=== PATIENT | female | born 1990 | race Caucasian/White ===

== ENCOUNTER 2017-05-22 13:00 | Emergency (ER) | payer MEDICAID, OTHER ==
[~2017-05-22] VITALS: Ht 167.6 cm; Wt 86.3 kg
[2017-05-22 13:17] VITALS: BP 116/76
[2017-05-22 14:15] LABS: RAPID INFLUENZA A Negative (Negative); RAPID INFLUENZA B Negative (Negative)
== END 2017-05-22 15:00 | disposition home or self-care (01) ==
LOC: ED 14:54
DX: J20.8 Acute bronchitis due to other specified organisms (principal); J00 Acute nasopharyngitis [common cold]
CPT/HCPCS: 87400; 99284

== ENCOUNTER 2017-08-16 21:48 | Emergency (ER) | payer MEDICAID ==
[~2017-08-16] VITALS: Ht 167.6 cm; Wt 73.6 kg
[2017-08-16 21:50] VITALS: BP 114/80
[2017-08-16] MEDS ORDERED: HYDROcodone/APAP 5/325 TABLET ONE (22:04)
[2017-08-16] MEDS ORDERED: HYDROcodone/APAP 5/325 TABLET PO ONE (22:30)
== END 2017-08-16 22:30 | disposition home or self-care (01) ==
LOC: ED 22:00
DX: K04.7 Periapical abscess without sinus (principal); K02.9 Dental caries, unspecified
CPT/HCPCS: 99283

== ENCOUNTER 2018-01-10 00:03 | Emergency (ER) | payer SELFPAY ==
[~2018-01-10] VITALS: Ht 167.6 cm; Wt 71.1 kg
[2018-01-10 00:05] VITALS: BP 117/80
[2018-01-10] MEDS ORDERED: FLUORESCEIN/BENOXINATE 5 ML DROPS OP ONE (00:30)
[2018-01-10] MEDS ORDERED: ERYTHROMYCIN OPHTH 0.5%, 1GM EACHEYE ONE (01:00)
== END 2018-01-10 01:27 | disposition home or self-care (01) ==
LOC: ED 01:26
DX: H10.023 Other mucopurulent conjunctivitis, bilateral (principal)
CPT/HCPCS: 99283

== ENCOUNTER 2018-02-28 06:55 | Inpatient (IN) | payer MEDICAID, OTHER ==
[~2018-02-28] VITALS: Ht 167.6 cm; Wt 77.5 kg
[2018-02-28] MEDS ORDERED: ACETAMINOPHEN 500 MG TABLET PO ONE (07:30)
[2018-02-28] MEDS ORDERED: ACETAMINOPHEN 500 MG TABLET ONE (07:37)
[2018-02-28] MEDS ORDERED: HYDROmorphone 2 MG/ML, 1ML ONE (07:54)
[2018-02-28] MEDS ORDERED: HYDROmorphone 1 MG/ML, 1ML IV ONE (08:00)
[2018-02-28 08:23] LABS: BASOPHILS # (AUTO) 0.05 x10^3/uL (0-0.1); BASOPHILS % (AUTO) 0 % (0-1); EOSINOPHILS % (AUTO) 1 % (1-7); LYMPHOCYTES # (AUTO) 2.29 x10^3/uL (1-3.4); LYMPHOCYTES % (AUTO) 20 % (22-44); MD NO; MEAN CORPUSCULAR HEMOGLOBIN 31.7 pg (27.0-34.8); MEAN CORPUSCULAR HGB CONC 34.7 g/dL (32.4-35.8); MEAN CORPUSCULAR VOLUME 91.3 fL (80-100); MEAN PLATELET VOLUME 9.3 fL (7.4-10.4); MONOCYTES # (AUTO) 0.76 x10^3/uL (0.2-0.8); MONOCYTES % (AUTO) 7 % (2-9); NEUTROPHILS # (AUTO) 8.27 x10^3/uL (1.8-6.8); NEUTROPHILS % (AUTO) 72 % (42-75); PLATELET COUNT 301 x10^3/uL (130-400); RED BLOOD COUNT 4.11 x10^6/uL (3.82-5.3); RED CELL DISTRIBUTION WIDTH 11.7 % (9.6-15.2)
[2018-02-28 08:34] LABS: ALBUMIN 3.3 g/dL (3.4-5.0); ANION GAP 10 mmol/L (5-15); CALCIUM 8.9 mg/dL (8.5-10.1); CHLORIDE 103 mmol/L (98-107)
[2018-02-28 08:40] LABS: ALANINE AMINOTRANSFERASE 17 U/L (12-78); ALKALINE PHOSPHATASE 81 U/L (45-117); CREATININE 0.61 mg/dL (0.55-1.02); TOTAL PROTEIN 8.3 g/dL (6.4-8.2)
[2018-02-28 08:42] LABS: BILIRUBIN,TOTAL 0.4 mg/dL (0.2-1.0)
[2018-02-28] MEDS ORDERED: OMNIPAQUE 350 MG/ML, 100ML BOTTLE ONE (09:10)
[2018-02-28] MEDS ORDERED: NALOXONE 1 MG/ML, 2ML ONE (11:47)
[2018-02-28] MEDS ORDERED: ONDANSETRON ODT 4 MG PO PRN (13:30)
[2018-02-28] MEDS ORDERED: ONDANSETRON 2MG/ML, 2ML IVPush PRN (13:30)
[2018-02-28] MEDS: ENOXAPARIN 40 MG/0.4 ML SQ SCH (14:29)
[2018-02-28 14:51] VITALS: BP 113/75
[2018-02-28 19:12] VITALS: BP 109/74
[2018-02-28] MEDS: ACETAMINOPHEN 325 MG TABLET PO PRN (22:57)
[2018-03-01 00:07] VITALS: BP 102/67
[2018-03-01] MEDS ORDERED: PHARMACOKINETIC CONSULTATION MC ONE (04:00)
[2018-03-01] MEDS ORDERED: VANCOMYCIN PER PHARMACY MC PRN (04:00)
[2018-03-01] MEDS ORDERED: VANCOMYCIN 2,000 MG in SODIUM CHLORIDE 0.9% 500 ML IV ONE (04:00)
[2018-03-01] MEDS ORDERED: PHARMACOKINETIC MONITORING MC PRN (04:00)
[2018-03-01 04:35] LABS: AMPHETAMINE SCREEN, URINE Positive (Negative); BARBITURATE SCREEN, URINE Negative (Negative); BENZODIAZEPINE SCREEN, URINE Negative (Negative); CANNABINOID SCREEN, URINE Positive (Negative); COCAINE SCREEN, URINE Negative (Negative); METHADONE SCREEN, URINE Negative (Negative); OPIATE SCREEN, URINE Positive (Negative)
[2018-03-01 04:53] LABS: BASOPHILS # (AUTO) 0.05 x10^3/uL (0-0.1); BASOPHILS % (AUTO) 1 % (0-1); EOSINOPHILS # (AUTO) 0.07 x10^3/uL (0-0.4); EOSINOPHILS % (AUTO) 1 % (1-7); LYMPHOCYTES # (AUTO) 2.73 x10^3/uL (1-3.4); LYMPHOCYTES % (AUTO) 24 % (22-44); MD NO; MEAN CORPUSCULAR HEMOGLOBIN 31.4 pg (27.0-34.8); MEAN CORPUSCULAR HGB CONC 34.4 g/dL (32.4-35.8); MEAN CORPUSCULAR VOLUME 91.3 fL (80-100); MEAN PLATELET VOLUME 9.6 fL (7.4-10.4); MONOCYTES # (AUTO) 0.85 x10^3/uL (0.2-0.8); MONOCYTES % (AUTO) 7 % (2-9); NEUTROPHILS # (AUTO) 7.93 x10^3/uL (1.8-6.8); NEUTROPHILS % (AUTO) 68 % (42-75); PLATELET COUNT 331 x10^3/uL (130-400); RED BLOOD COUNT 4.25 x10^6/uL (3.82-5.3); RED CELL DISTRIBUTION WIDTH 11.9 % (9.6-15.2)
[2018-03-01 05:03] LABS: ANION GAP 10 mmol/L (5-15); CALCIUM 8.6 mg/dL (8.5-10.1); CHLORIDE 104 mmol/L (98-107); CREATININE 0.55 mg/dL (0.55-1.02)
[2018-03-01] MEDS ORDERED: LORazepam 2 MG/ML, 1ML IV PRN ×5 (07:30)
[2018-03-01] MEDS ORDERED: LORazepam 1MG TABLET PO PRN ×4 (07:30)
[2018-03-01] MEDS ORDERED: FOLIC ACID 5 MG/ML IM ONE ×2 (07:30→10:30)
[2018-03-01] MEDS: MULTIVITAMINS/MINERALS TABLET PO SCH (08:42)
[2018-03-01] MEDS: BACLOFEN 10 MG TABLET PO SCH ×2 (08:42→19:16)
[2018-03-01 08:55] VITALS: BP 105/70
[2018-03-01] MEDS: NACL IV SCH (10:01)
[2018-03-01] MEDS: FOLIC ACID IV SCH (10:01)
[2018-03-01] MEDS: MVI ADULT IV SCH (10:01)
[2018-03-01] MEDS: POTASSIUM CHLORIDE IV SCH (10:01)
[2018-03-01] MEDS: D5 IV SCH (10:01)
[2018-03-01] MEDS ORDERED: FENTANYL PF 100 MCG/2ML ONE (11:20)
[2018-03-01] MEDS: DAPTOMYCIN 400 MG in SODIUM CHLORIDE 0.9% 100 ML IVPB SCH (12:33)
[2018-03-01] MEDS: ENOXAPARIN 40 MG/0.4 ML SQ SCH (13:06)
[2018-03-01 13:25] VITALS: BP 107/75
[2018-03-01] MEDS ORDERED: VANCOMYCIN 2,000 MG in SODIUM CHLORIDE 0.9% 500 ML IV SCH (17:00)
[2018-03-01 19:30] VITALS: BP 104/74
[2018-03-01] MEDS: LORazepam 0.5MG TABLET PO PRN (21:46)
[2018-03-01] MEDS: ACETAMINOPHEN 325 MG TABLET PO PRN (22:25)
[2018-03-02 00:42] VITALS: BP 93/61
[2018-03-02 01:03] VITALS: BP 100/67
[2018-03-02 04:13] VITALS: BP 109/77
[2018-03-02] MEDS: ACETAMINOPHEN 325 MG TABLET PO PRN ×3 (04:27→23:23)
[2018-03-02] MEDS: LORazepam 0.5MG TABLET PO PRN ×4 (04:27→19:57)
[2018-03-02 04:44] LABS: CULTURE INDICATED? NO; MICROSCOPIC NOT IND
[2018-03-02 05:24] LABS: BASOPHILS # (AUTO) 0.05 x10^3/uL (0-0.1); BASOPHILS % (AUTO) 1 % (0-1); EOSINOPHILS # (AUTO) 0.14 x10^3/uL (0-0.4); EOSINOPHILS % (AUTO) 2 % (1-7); LYMPHOCYTES # (AUTO) 2.96 x10^3/uL (1-3.4); LYMPHOCYTES % (AUTO) 31 % (22-44); MD NO; MEAN CORPUSCULAR HEMOGLOBIN 31.1 pg (27.0-34.8); MEAN CORPUSCULAR HGB CONC 34.1 g/dL (32.4-35.8); MEAN CORPUSCULAR VOLUME 91.3 fL (80-100); MEAN PLATELET VOLUME 9.1 fL (7.4-10.4); MONOCYTES # (AUTO) 0.79 x10^3/uL (0.2-0.8); MONOCYTES % (AUTO) 8 % (2-9); NEUTROPHILS # (AUTO) 5.49 x10^3/uL (1.8-6.8); NEUTROPHILS % (AUTO) 58 % (42-75); PLATELET COUNT 296 x10^3/uL (130-400); RED BLOOD COUNT 3.78 x10^6/uL (3.82-5.3)
[2018-03-02 05:36] LABS: ANION GAP 9 mmol/L (5-15); CALCIUM 8.5 mg/dL (8.5-10.1); CHLORIDE 109 mmol/L (98-107)
[2018-03-02 05:37] LABS: CREATININE 0.55 mg/dL (0.55-1.02)
[2018-03-02 08:45] VITALS: BP 107/73
[2018-03-02] MEDS: NACL IV SCH (08:53)
[2018-03-02] MEDS: POTASSIUM CHLORIDE IV SCH (08:53)
[2018-03-02] MEDS: D5 IV SCH (08:53)
[2018-03-02] MEDS: MVI ADULT IV SCH (08:53)
[2018-03-02] MEDS: FOLIC ACID IV SCH (08:53)
[2018-03-02] MEDS: MULTIVITAMINS/MINERALS TABLET PO SCH (08:54)
[2018-03-02] MEDS: THIAMINE 100MG TABLET PO SCH (08:54)
[2018-03-02] MEDS: BACLOFEN 10 MG TABLET PO SCH ×2 (08:54→21:28)
[2018-03-02] MEDS: ENOXAPARIN 40 MG/0.4 ML SQ SCH (08:56)
[2018-03-02] MEDS ORDERED: THIAMINE 100 MG in DEXTROSE 5% 50 ML IVPB SCH (09:00)
[2018-03-02] MEDS: DAPTOMYCIN 400 MG in SODIUM CHLORIDE 0.9% 100 ML IVPB SCH (12:38)
[2018-03-02 13:49] LABS: SYN CELLS COUNTED 4
[2018-03-02 14:14] VITALS: BP 93/61
[2018-03-02 19:35] VITALS: BP 103/71
[2018-03-02] MEDS: TRAZODONE 50MG TABLET PO SCH (21:28)
[2018-03-03 01:54] VITALS: BP 108/73
[2018-03-03 05:24] LABS: BASOPHILS # (AUTO) 0.04 x10^3/uL (0-0.1); BASOPHILS % (AUTO) 0 % (0-1); EOSINOPHILS # (AUTO) 0.07 x10^3/uL (0-0.4); EOSINOPHILS % (AUTO) 1 % (1-7); LYMPHOCYTES # (AUTO) 3.02 x10^3/uL (1-3.4); LYMPHOCYTES % (AUTO) 30 % (22-44); MD NO; MEAN CORPUSCULAR HEMOGLOBIN 31.5 pg (27.0-34.8); MEAN CORPUSCULAR HGB CONC 34.2 g/dL (32.4-35.8); MEAN CORPUSCULAR VOLUME 92.2 fL (80-100); MEAN PLATELET VOLUME 8.7 fL (7.4-10.4); MONOCYTES # (AUTO) 0.82 x10^3/uL (0.2-0.8); MONOCYTES % (AUTO) 8 % (2-9); NEUTROPHILS # (AUTO) 6.27 x10^3/uL (1.8-6.8); NEUTROPHILS % (AUTO) 61 % (42-75); PLATELET COUNT 330 x10^3/uL (130-400); RED BLOOD COUNT 3.82 x10^6/uL (3.82-5.3); RED CELL DISTRIBUTION WIDTH 11.8 % (9.6-15.2)
[2018-03-03 05:31] LABS: ALANINE AMINOTRANSFERASE 10 U/L (12-78); ALBUMIN 2.4 g/dL (3.4-5.0); ANION GAP 7 mmol/L (5-15); CALCIUM 8.2 mg/dL (8.5-10.1); CHLORIDE 111 mmol/L (98-107); CREATININE 0.45 mg/dL (0.55-1.02)
[2018-03-03 05:35] LABS: HCT (SEDRATE) 35.2 % (34.6-47.8)
[2018-03-03 05:41] LABS: ALKALINE PHOSPHATASE 60 U/L (45-117); BILIRUBIN,TOTAL 0.2 mg/dL (0.2-1.0); TOTAL PROTEIN 6.7 g/dL (6.4-8.2)
[2018-03-03] MEDS: ACETAMINOPHEN 325 MG TABLET PO PRN ×3 (05:53→22:43)
[2018-03-03] MEDS: CEFAZOLIN PMX 2GM/50ML 50 ML IVPB SCH ×3 (05:54→21:45)
[2018-03-03] MEDS: LORazepam 0.5MG TABLET PO PRN ×2 (06:01→12:44)
[2018-03-03 07:05] VITALS: BP 102/65
[2018-03-03] MEDS: THIAMINE 100MG TABLET PO SCH (09:15)
[2018-03-03] MEDS: MULTIVITAMINS/MINERALS TABLET PO SCH (09:15)
[2018-03-03] MEDS: BACLOFEN 10 MG TABLET PO SCH ×2 (09:15→20:20)
[2018-03-03] MEDS: NACL IV SCH (09:16)
[2018-03-03] MEDS: POTASSIUM CHLORIDE IV SCH (09:16)
[2018-03-03] MEDS: FOLIC ACID IV SCH (09:16)
[2018-03-03] MEDS: D5 IV SCH (09:16)
[2018-03-03] MEDS: MVI ADULT IV SCH (09:16)
[2018-03-03 12:54] VITALS: BP 107/72
[2018-03-03] MEDS: ENOXAPARIN 40 MG/0.4 ML SQ SCH (14:16)
[2018-03-03 19:00] VITALS: BP 121/83
[2018-03-03] MEDS: TRAZODONE 50MG TABLET PO SCH (20:20)
[2018-03-04 01:42] VITALS: BP 112/77
[2018-03-04] MEDS: LORazepam 0.5MG TABLET PO PRN (04:02)
[2018-03-04] MEDS: CEFAZOLIN PMX 2GM/50ML 50 ML IVPB SCH ×2 (06:07→14:14)
[2018-03-04 07:22] VITALS: BP 124/82
[2018-03-04] MEDS: MULTIVITAMINS/MINERALS TABLET PO SCH (08:41)
[2018-03-04] MEDS: BACLOFEN 10 MG TABLET PO SCH (08:41)
[2018-03-04] MEDS: THIAMINE 100MG TABLET PO SCH (08:42)
[2018-03-04] MEDS ORDERED: METHADONE 5 MG TABLET PO PRN (11:00)
[2018-03-04 13:10] VITALS: BP 118/81
[2018-03-04] MEDS: ENOXAPARIN 40 MG/0.4 ML SQ SCH (14:13)
[2018-03-04] MEDS: ACETAMINOPHEN 325 MG TABLET PO PRN (14:13)
[2018-03-04 19:25] VITALS: BP 121/81
== END 2018-03-04 21:00 | disposition left against medical advice (07) | DRG 720 ==
LOC: ED 07:51 → EDIP 09:45 → 3NE 12:35
PROVIDERS: ADMIT Hospitalist; ATTEND Hospitalist
PROC: 0R9 Upper Joints, Drainage (ICD-10-PCS; principal; 2018-03-01)
PROC: BP2 Imaging, Non-Axial Upper Bones, Computerized Tomography (CT Scan) (ICD-10-PCS; 2018-03-01)
PROC: 02HV33Z Insertion of Infusion Device into Superior Vena Cava, Percutaneous Approach (ICD-10-PCS; 2018-03-03)
PROC: B548ZZA Ultrasonography of Superior Vena Cava, Guidance (ICD-10-PCS; 2018-03-03)
DX: A41.9 Sepsis, unspecified organism (principal); J90 Pleural effusion, not elsewhere classified; F11.20 Opioid dependence, uncomplicated; M00.011 Staphylococcal arthritis, right shoulder; F17.210 Nicotine dependence, cigarettes, uncomplicated; B95.8 Unspecified staphylococcus as the cause of diseases classified elsewhere; B95.61 Methicillin susceptible Staphylococcus aureus infection as the cause of diseases classified elsewhere; Y90.0 Blood alcohol level of less than 20 mg/100 ml; F10.10 Alcohol abuse, uncomplicated; F12.90 Cannabis use, unspecified, uncomplicated; F15.10 Other stimulant abuse, uncomplicated; F14.10 Cocaine abuse, uncomplicated; Z88.2 Allergy status to sulfonamides
CPT/HCPCS: 10160; 36415; 36569; 71260; 71552; 75989; 76937; 77001; 80048; 80053; 80307; 81003; 83605; 83735; 84100; 84145; 84703; 85025; 85651; 85810; 86140; 87040; 87077; 87147; 87186; 89050; 89060; 93005; 93306; G0378; J0690; J0878; J1170; J1650; J3010; J3370; J3480; Q9967; C1751; J2060; J7040

== ENCOUNTER 2018-06-25 18:40 | Emergency (ER) | payer MEDICAID, OTHER ==
[~2018-06-25] VITALS: Ht 167.6 cm; Wt 73.5 kg
[2018-06-25 18:51] VITALS: BP 128/84
[2018-06-25] MEDS ORDERED: FAMOTIDINE 20 MG TABLET ONE (19:57)
[2018-06-25] MEDS ORDERED: AZITHROMYCIN 250 MG TABLET ONE (19:57)
[2018-06-25] MEDS ORDERED: ONDANSETRON ODT 4 MG ONE (19:57)
[2018-06-25] MEDS ORDERED: AZITHROMYCIN 500 MG TABLET PO ONE (20:00)
[2018-06-25] MEDS ORDERED: FAMOTIDINE 20 MG TABLET PO ONE (20:00)
[2018-06-25] MEDS ORDERED: GENTAMICIN 80 MG/2 ML IM ONE (20:00)
[2018-06-25] MEDS ORDERED: ONDANSETRON ODT 4 MG PO ONE (20:00)
[2018-06-25 20:08] LABS: HCG UR SG 1.023 (1.003-1.030); MICROSCOPIC AUTO
[2018-06-25 20:09] LABS: CULTURE INDICATED? NO
[2018-06-25 20:14] LABS: BASOPHILS # (AUTO) 0.04 x10^3/uL (0-0.1); BASOPHILS % (AUTO) 1 % (0-1); EOSINOPHILS # (AUTO) 0.26 x10^3/uL (0-0.4); EOSINOPHILS % (AUTO) 5 % (1-7); LYMPHOCYTES # (AUTO) 2.38 x10^3/uL (1-3.4); LYMPHOCYTES % (AUTO) 46 % (22-44); MD NO; MEAN CORPUSCULAR HEMOGLOBIN 30.5 pg (27.0-34.8); MEAN CORPUSCULAR HGB CONC 34.2 g/dL (32.4-35.8); MEAN PLATELET VOLUME 8.7 fL (7.4-10.4); MONOCYTES % (AUTO) 6 % (2-9); NEUTROPHILS # (AUTO) 2.25 x10^3/uL (1.8-6.8); NEUTROPHILS % (AUTO) 43 % (42-75); PLATELET COUNT 264 x10^3/uL (130-400); RED BLOOD COUNT 4.61 x10^6/uL (3.82-5.3); RED CELL DISTRIBUTION WIDTH 13.1 % (9.6-15.2)
[2018-06-25 20:22] LABS: ALANINE AMINOTRANSFERASE 18 U/L (12-78); ALBUMIN 3.4 g/dL (3.4-5.0); ANION GAP 6 mmol/L (5-15); CALCIUM 9.2 mg/dL (8.5-10.1); CHLORIDE 105 mmol/L (98-107); CREATININE 0.65 mg/dL (0.55-1.02)
[2018-06-25 20:24] LABS: ALKALINE PHOSPHATASE 81 U/L (45-117); BILIRUBIN,TOTAL 0.2 mg/dL (0.2-1.0); TOTAL PROTEIN 7.4 g/dL (6.4-8.2)
[2018-06-25 21:07] LABS: CLUE CELLS NONE SEEN (NONE SEEN); WET PREP WBCS FEW (FEW)
== END 2018-06-25 22:03 | disposition home or self-care (01) ==
LOC: ED 21:57
DX: M79.602 Pain in left arm (principal); M79.601 Pain in right arm; R11.2 Nausea with vomiting, unspecified; N89.8 Other specified noninflammatory disorders of vagina
CPT/HCPCS: 36415; 80053; 81001; 81025; 83690; 85025; 87210; 87491; 87591; 87808; 96372; 99284; J1580; Q0162

== ENCOUNTER 2018-12-30 10:41 | Emergency (ER) | payer MEDICAID ==
[~2018-12-30] VITALS: Ht 167.6 cm; Wt 75.0 kg
[2018-12-30 12:39] VITALS: BP 101/57
== END 2018-12-30 13:03 | disposition home or self-care (01) ==
LOC: ED 12:24
DX: A59.01 Trichomonal vulvovaginitis (principal); F17.200 Nicotine dependence, unspecified, uncomplicated
CPT/HCPCS: 81001; 81025; 87210; 87491; 87591; 87808; 96372; 99283; J1580

== ENCOUNTER 2019-10-08 21:39 | Emergency (ER) | payer SELFPAY ==
[~2019-10-08] VITALS: Ht 167.6 cm; Wt 82.5 kg
[2019-10-08 21:44] VITALS: BP 121/74
--- NOTE | 2019-10-08 22:07 | NUR ---
CALLED FOR ROOM, NO ANSWER
--- NOTE | 2019-10-08 22:53 | NUR ---
NO ANSWER WHEN CALLED FOR ROOM
--- NOTE | 2019-10-08 23:51 | NUR ---
URINE SENT TO LAB
[2019-10-09 00:12] LABS: HCG UR SG 1.026 (1.003-1.030); MICROSCOPIC INDICATED
[2019-10-09 00:15] LABS: CULTURE INDICATED? YES
--- NOTE | 2019-10-09 00:38 | NUR ---
PT TO US AT THIS TIME
[2019-10-09 00:41] LABS: BASOPHILS # (AUTO) 0.03 x10^3/uL (0-0.1); BASOPHILS % (AUTO) 0 % (0-1); EOSINOPHILS # (AUTO) 0.23 x10^3/uL (0-0.4); EOSINOPHILS % (AUTO) 3 % (1-7); LYMPHOCYTES # (AUTO) 2.06 x10^3/uL (1-3.4); LYMPHOCYTES % (AUTO) 26 % (22-44); MD NO; MEAN CORPUSCULAR HGB CONC 33.5 g/dL (32.4-35.8); MEAN CORPUSCULAR VOLUME 92.6 fL (80-100); MEAN PLATELET VOLUME 8.6 fL (7.4-10.4); MONOCYTES % (AUTO) 5 % (2-9); NEUTROPHILS # (AUTO) 5.23 x10^3/uL (1.8-6.8); NEUTROPHILS % (AUTO) 66 % (42-75); PLATELET COUNT 289 x10^3/uL (130-400); RED BLOOD COUNT 4.17 x10^6/uL (3.82-5.3); RED CELL DISTRIBUTION WIDTH 12.6 % (9.6-15.2)
[2019-10-09 00:53] LABS: ALANINE AMINOTRANSFERASE 14 U/L (12-78); ANION GAP 4 mmol/L (5-15); CALCIUM 8.6 mg/dL (8.5-10.1); CHLORIDE 110 mmol/L (98-107); CREATININE 0.66 mg/dL (0.55-1.02)
[2019-10-09 00:58] LABS: ALKALINE PHOSPHATASE 60 U/L (45-117); BILIRUBIN,TOTAL 0.2 mg/dL (0.2-1.0); TOTAL PROTEIN 7.2 g/dL (6.4-8.2)
[2019-10-09] MEDS ORDERED: GENTAMICIN 80 MG/2 ML IM ONE (01:00)
[2019-10-09] MEDS ORDERED: AZITHROMYCIN 500 MG TABLET PO ONE (01:00)
--- NOTE | 2019-10-09 01:01 | NUR ---
SAMPLES SENT TO LAB
--- NOTE | 2019-10-09 01:15 | NUR ---
REQ SENT TO PHARM FOR MEDS
[2019-10-09 01:29] LABS: CLUE CELLS PRESENT (NONE SEEN)
[2019-10-09 01:30] LABS: WET PREP WBCS FEW (FEW)
--- NOTE | 2019-10-09 01:44 | NUR ---
Patient/Caregiver given discharge instructions and they have confirmed that they understand the instructions. Patient ambulatory with steady gait.
== END 2019-10-09 01:45 | disposition home or self-care (01) ==
LOC: ED 10-09 00:49
DX: N30.00 Acute cystitis without hematuria (principal); N76.0 Acute vaginitis; R10.9 Unspecified abdominal pain; R50.9 Fever, unspecified
CPT/HCPCS: 36415; 76830; 80053; 81001; 81025; 84703; 85025; 87086; 87210; 87491; 87591; 87808; 96372; 99284; J1580

== ENCOUNTER 2020-10-25 02:19 | Inpatient (IN) | payer MEDICAID, OTHER ==
[~2020-10-25] VITALS: Ht 167.6 cm; Wt 104.5 kg
[2020-10-25 11:00] VITALS: BP 109/69
[2020-10-25] MEDS ORDERED: LIDOCAINE 1%, 20ML ONE ×2 (11:13→13:34)
[2020-10-25] MEDS ORDERED: FENTANYL PF 100 MCG/2ML IVPush PRN (11:30)
[2020-10-25] MEDS ORDERED: CALCIUM CARBONATE 500 MG TAB.CHEW PO PRN (11:30)
[2020-10-25] MEDS ORDERED: D5%-LACTATED RINGERS 1,000 ML IV SCH (11:30)
[2020-10-25] MEDS ORDERED: TERBUTALINE 1 MG/ML, 1ML IVPush PRN (11:30)
[2020-10-25] MEDS ORDERED: FENTANYL PF 100 MCG/2ML IV PRN (11:30)
[2020-10-25] MEDS ORDERED: ONDANSETRON 2MG/ML, 2ML IVPush PRN ×2 (11:30→15:30)
[2020-10-25] MEDS ORDERED: MISOPROSTOL 25 MCG TABLET VG PRN (11:30)
[2020-10-25] MEDS ORDERED: OXYTOCIN 30U/ 0.9% NaCL 500ML 500 ML IV ONE (11:30)
[2020-10-25] MEDS ORDERED: OXYTOCIN 30U/ 0.9% NaCL 500ML 500 ML IV PRN (11:30)
[2020-10-25] MEDS ORDERED: TERBUTALINE 1 MG/ML, 1ML SQ PRN (11:30)
[2020-10-25] MEDS ORDERED: PREN1TAB10 PO (11:42)
[2020-10-25] MEDS ORDERED: METH10TA2 PO (11:42)
[2020-10-25 12:01] VITALS: BP 109/69
[2020-10-25 12:09] LABS: MICROSCOPIC INDICATED
[2020-10-25 12:20] LABS: AMPHETAMINE SCREEN, URINE Negative (Negative); BARBITURATE SCREEN, URINE Negative (Negative); BENZODIAZEPINE SCREEN, URINE Negative (Negative); CANNABINOID SCREEN, URINE Negative (Negative); COCAINE SCREEN, URINE Negative (Negative); METHADONE SCREEN, URINE Positive (Negative); OPIATE SCREEN, URINE Positive (Negative)
[2020-10-25 12:26] LABS: BASOPHILS % (AUTO) 1 % (0-1); EOSINOPHILS % (AUTO) 1 % (1-7); LYMPHOCYTES % (AUTO) 15 % (22-44); MD NO; MEAN CORPUSCULAR HEMOGLOBIN 32.4 pg (27.0-34.8); MEAN CORPUSCULAR HGB CONC 35.1 g/dL (32.4-35.8); MEAN PLATELET VOLUME 9.3 fL (7.4-10.4); MONOCYTES % (AUTO) 6 % (2-9); NEUTROPHILS % (AUTO) 77 % (42-75); PLATELET COUNT 262 x10^3/uL (130-400); RED BLOOD COUNT 3.62 x10^6/uL (3.82-5.3); RED CELL DISTRIBUTION WIDTH 13.6 % (9.6-15.2)
[2020-10-25] MEDS: LACTATED RINGERS 1,000 ML IV SCH ×2 (13:20→14:29)
[2020-10-25] MEDS ORDERED: MISOPROSTOL 200 MCG TABLET ONE (13:34)
[2020-10-25] MEDS ORDERED: NEWBORN KIT ONE (13:34)
[2020-10-25] MEDS ORDERED: BUPIVACAINE 0.25% ONE ×2 (14:30→18:40)
[2020-10-25] MEDS ORDERED: FENTANYL/BUPIV./NS/PF 250 ML EPIDCONT ONE (14:30)
[2020-10-25] MEDS ORDERED: FENTANYL/BUPIV./NS/PF 250 ML EPIDCONT SCH (15:30)
[2020-10-25] MEDS ORDERED: EPHEDRINE 50 MG/ML, 1ML IVPush PRN (15:30)
[2020-10-25] MEDS ORDERED: LACTATED RINGERS 1,000 ML IVBOLUS PRN (15:30)
[2020-10-25] MEDS ORDERED: LACTATED RINGERS 1,000 ML IV SCH (15:30)
[2020-10-25] MEDS ORDERED: NALOXONE 0.4 MG/ML, 1ML IVPush PRN (15:30)
[2020-10-25] MEDS ORDERED: DIPHENHYDRAMINE 50 MG/ML, 1ML IVPush PRN (15:30)
[2020-10-25 16:11] LABS: MICROSCOPIC INDICATED
[2020-10-25] MEDS ORDERED: LIDOCAINE/MPF 2%-EPI 1:200K, 20 ML ONE (18:19)
[2020-10-25] MEDS: OXYTOCIN 30U/ 0.9% NaCL 500ML 500 ML IV SCH (22:00)
[2020-10-25] MEDS ORDERED: DOCUSATE 100 MG CAPSULE PO PRN (22:00)
[2020-10-25] MEDS ORDERED: ONDANSETRON 2MG/ML, 2ML IV PRN (22:00)
[2020-10-25] MEDS ORDERED: SIMETHICONE 80 MG CHEW TAB PO PRN (22:00)
[2020-10-25] MEDS ORDERED: HYDROcodone/APAP 5/325 TABLET PO PRN ×2 (22:00)
[2020-10-25] MEDS: IBUPROFEN 600 MG TABLET PO PRN (22:26)
[2020-10-25 23:43] VITALS: BP 115/69
[2020-10-26 03:38] VITALS: BP 106/70
[2020-10-26] MEDS: IBUPROFEN 600 MG TABLET PO PRN ×3 (04:46→18:16)
[2020-10-26 07:25] VITALS: BP 107/68
[2020-10-26 07:48] LABS: BASOPHILS % (AUTO) 0 % (0-1); EOSINOPHILS % (AUTO) 1 % (1-7); LYMPHOCYTES % (AUTO) 18 % (22-44); MEAN CORPUSCULAR HEMOGLOBIN 31.6 pg (27.0-34.8); MEAN PLATELET VOLUME 9.1 fL (7.4-10.4); MONOCYTES % (AUTO) 9 % (2-9); NEUTROPHILS % (AUTO) 73 % (42-75); PLATELET COUNT 239 x10^3/uL (130-400); RED CELL DISTRIBUTION WIDTH 13.9 % (9.6-15.2)
[2020-10-26 07:51] LABS: MD NO
[2020-10-26] MEDS: OXYTOCIN 30U/ 0.9% NaCL 500ML 500 ML IV SCH ×2 (08:00→18:00)
[2020-10-26] MEDS ORDERED: METHADONE INTENSOL 10 MG/ML ORAL CONC PO SCH (08:00)
[2020-10-26] MEDS ORDERED: PRENATAL VIT/IRON/FA 1 EACH TABLET PO SCH (09:00)
[2020-10-26 12:45] VITALS: BP 106/70
[2020-10-26 16:12] VITALS: BP 112/71
[2020-10-26] MEDS ORDERED: DIPH,PERTUSS(ACELL),TET VAC/PF NC IM-VACC ONE ×2 (18:29→19:00)
== END 2020-10-26 19:00 | disposition home or self-care (01) | DRG 806 ==
LOC: LDIP 10:34 → 2NW 23:00
PROVIDERS: ADMIT Obstetrics & Gynecology; ATTEND Obstetrics & Gynecology
PROC: 10E0XZZ Delivery of Products of Conception, External Approach (ICD-10-PCS; principal; 2020-10-25)
PROC: 3E033VJ Introduction of Other Hormone into Peripheral Vein, Percutaneous Approach (ICD-10-PCS; 2020-10-25)
PROC: 3E0R3BZ Introduction of Anesthetic Agent into Spinal Canal, Percutaneous Approach (ICD-10-PCS; 2020-10-25)
PROC: 00HU33Z Insertion of Infusion Device into Spinal Canal, Percutaneous Approach (ICD-10-PCS; 2020-10-25)
PROC: 0HQ9XZZ Repair Perineum Skin, External Approach (ICD-10-PCS; 2020-10-25)
PROC: 0T9B70Z Drainage of Bladder with Drainage Device, Via Natural or Artificial Opening (ICD-10-PCS; 2020-10-25)
DX: O69.81X0 Labor and delivery complicated by cord around neck, without compression, not applicable or unspecified (principal); O99.324 Drug use complicating childbirth; Z37.0 Single live birth; Z88.2 Allergy status to sulfonamides; Z88.8 Allergy status to other drugs, medicaments and biological substances; F11.10 Opioid abuse, uncomplicated; Z20.822 Contact with and (suspected) exposure to COVID-19; O70.0 First degree perineal laceration during delivery; Z3A.38 38 weeks gestation of pregnancy
CPT/HCPCS: 36415; 80307; 81001; 85025; 86592; 86850; 86900; 87635; 90715; G0378; J3010; J2590; J7120